=== PATIENT | male | born 2000 | race Hispanic/Latino ===

== ENCOUNTER 2024-01-07 07:04 | Day surgery (SDC) | payer OTHER ==
[~2024-01-07] VITALS: Ht 172.7 cm; Wt 93.9 kg
[~2024-01-07 07:04] MED LIST: CODE30TA PO; IBUP200T43 PO
[2024-01-07] MEDS: LR 1,000 ML IV SCH (07:40)
[2024-01-07] MEDS: LIDOCAINE 1% SDV 30ML VIAL As Ordered ONE (08:09)
[2024-01-07] MEDS ORDERED: propofoL 200 MG/20 ML VIAL As Ordered ONE (08:15)
[2024-01-07] MEDS ORDERED: MIDAZOLAM INJ 2MG/2ML VIAL As Ordered ONE (08:15)
[2024-01-07] MEDS ORDERED: fentaNYL 100 MCG/2 ML INJECTION As Ordered ONE (08:15)
[2024-01-07] MEDS ORDERED: LIDOCAINE 2% 100MG/5ML SDV (FOR ANES.) As Ordered ONE (08:15)
[2024-01-07] MEDS: ceFAZolin SOD 2 GM in IV 1 EA IV ONE (08:30)
[2024-01-07] MEDS ORDERED: ACETAMINOPHEN 1000MG 100ML IV BAG As Ordered ONE (08:44)
[2024-01-07] MEDS ORDERED: KETOROLAC 60MG 2ML VIAL As Ordered ONE (08:45)
[2024-01-07] MEDS ORDERED: ONDANSETRON 4MG 2ML VIAL As Ordered ONE (08:45)
[2024-01-07] MEDS ORDERED: METOCLOPRAMIDE INJ 10MG/2ML VIAL IV PRN (09:10)
[2024-01-07] MEDS ORDERED: oxyCODONE 5MG TAB PO PRN (09:10)
[2024-01-07] MEDS ORDERED: MORPHINE 2 MG/ML 1ML VIAL IV PRN (09:10)
[2024-01-07] MEDS ORDERED: ONDANSETRON 4MG 2ML VIAL IV PRN (09:10)
[2024-01-07] MEDS ORDERED: LR 1,000 ML IV SCH (09:10)
[2024-01-07 10:23] VITALS: BP 112/62; TEMP 97.6; O2SAT 99
== END 2024-01-07 10:30 | disposition home or self-care (01) ==
LOC: M SDC 07:04
PROVIDERS: ATTEND Podiatrist Foot & Ankle Surgery
DX: T84.84XA Pain due to internal orthopedic prosthetic devices, implants and grafts, initial encounter (principal); Z79.899 Other long term (current) drug therapy
CPT/HCPCS: 20680; 76000; J0131; J0665; J0690; J1885; J2250; J2405; J3010